=== PATIENT | male | born 1985 | race Caucasian/White ===

== ENCOUNTER 2024-05-23 09:55 | Inpatient (IN) ==
[2024-05-23 13:02] LABS: ABS Eosinophils 0.1 10^3/uL (0.0-0.5); ABS Lymphocytes 1.2 10^3/uL (1.0-4.8); ABS Monocytes 0.9 10^3/uL (0.0-1.1); ABS Neutrophils 10.3 10^3/uL (1.5-7.6); ABS Nucleated RBC 0.01 10^3/ul; Eosinophil % 0.8 %; Hemoglobin 13.6 g/dL (13.2-16.3); Lymphocyte % 9.4 %; Mean Corpuscular Hemoglobin 32.4 pg (27-33); Mean Corpuscular Hgb Conc 34.8 g/dL (31-36); Mean Corpuscular Volume 92.9 fL (80-97); Mean Platelet Volume 8.4 fL (7.5-11.2); Nucleated Red Blood Cells % 0.1 %/100WBC (0.0-0.8); Platelet Count 213 10^3/uL (150-450); Red Blood Count 4.19 10^6/uL (4.06-5.63); Red Cell Distribution Width 13.9 % (12-17); White Blood Count 12.6 10^3/uL (3.6-10.2)
[2024-05-23] MEDS: cefTRIAXone 1 gm/50 mL D5W 1 GM/50 ML BAG IV ONE ×2 (13:04→22:38)
[2024-05-23 13:15] LABS: Activated Partial Thrombo Time 32.1 seconds (26.0-38.0); INR 1.05 (0.83-1.13)
[2024-05-23 14:01] LABS: Albumin 4.9 g/dL (3.2-5.2); C Reactive Protein 61.42 mg/L (<8.01); Calcium 9.6 mg/dL (8.6-10.3); Creatinine, Serum 0.79 mg/dL (0.67-1.17); Globulin 2.4 g/dL (2-4); Potassium 4.2 mmol/L (3.5-5.0); Total Protein 7.3 g/dL (6.4-8.9); eGFR CKD-EPI 115.9 (>60)
[2024-05-23] MEDS: Aztreonam 2 GM in NS 0.9% 100 ml BAG 100 ML IVPB ONE (14:39)
[2024-05-23] MEDS: Lactated Ringers SEPSIS* BAG 2,540 ML IV ONE (14:49)
[2024-05-23 14:50] LABS: High Sensitivity Troponin 1 Hr 4 pg/mL (<20)
[2024-05-23] MEDS: Iohexol 300 (CONTRAST) 10 ML SDV IV ONE (15:03)
[2024-05-23] MEDS: Vancomycin 1,500 MG in NS 0.9% 250 ml 250 ML IVPB ONE (17:08)
[2024-05-23] MEDS ORDERED: Midazolam 2 mg/2 ml VIAL 1 mg/ml 2 ml VIAL (2 mg) ONE (17:57)
[2024-05-23] MEDS ORDERED: Propofol 10 MG/ML 20 ML BTL ONE ×2 (17:58→19:37)
[2024-05-23] MEDS ORDERED: fentaNYL 250 mcg/5 ml 50 MCG/ML 5 ml VIAL (250 MCG) ONE (17:58)
[2024-05-23] MEDS ORDERED: Lidocaine 2% PF 5 ML VIAL ONE (17:58)
[2024-05-23] MEDS ORDERED: Sevoflurane BOTTLE ONE (18:02)
[2024-05-23] MEDS ORDERED: Ondansetron 4 mg VIAL 2 MG/ML 2 ml VIAL IV PRN ×2 (18:15→20:44)
[2024-05-23] MEDS ORDERED: Naloxone 0.4 mg VIAL 0.4 mg/ml 1 ml VIAL IV PRN (18:15)
[2024-05-23] MEDS ORDERED: fentaNYL 100 mcg/2 ml 50 MCG/ML VIAL IV PRN (18:15)
[2024-05-23] MEDS ORDERED: NS 0.45% 1000 ml BAG 1,000 ML IV SCH (19:00)
[2024-05-23] MEDS ORDERED: Levalbuterol HFA INHALER MDI ONE (19:16)
[2024-05-23] MEDS ORDERED: Famotidine IV 10 MG/ML 2 ml VIAL (20 mg) ONE (19:17)
[2024-05-23] MEDS ORDERED: Dexmedetomidine 200 mcg/2 ml 2 ml VIAL (200 mcg) ONE (19:55)
[2024-05-23] MEDS ORDERED: ceFAZolin VIAL VIAL ONE (20:01)
[2024-05-23] MEDS ORDERED: Acetaminophen IV 1 GM/100ML 1,000 MG/100 ML BAG IV ONE (20:12)
[2024-05-23] MEDS ORDERED: Dexamethasone IV 4 MG/ML VIAL 1 ml VIAL ONE (20:14)
[2024-05-23] MEDS ORDERED: ceFAZolin 1 GM in Dextrose 0 GM/0 ML BAG ONE (20:24)
[2024-05-23] MEDS ORDERED: Magnesium Hydroxide LIQ 30 ML UDC PO PRN (20:44)
[2024-05-23] MEDS ORDERED: Lactulose 30 ml UDC PO PRN (20:44)
[2024-05-23] MEDS ORDERED: Ondansetron ODT 4 mg TAB 4 MG TAB PO PRN (20:44)
[2024-05-23] MEDS: Acetaminophen IV 1 GM/100ML 1,000 MG/100 ML BAG IV ONE (22:37)
[2024-05-23] MEDS: Lactated Ringers 1000 ml BAG 1,000 ML IV SCH ×2 (22:38→23:06)
[2024-05-23] MEDS: Buffered Lidocaine 1% SYRIN 1 ml INTRADERM ONE (22:38)
[2024-05-23] MEDS: Morphine 2 MG/ML SYRINGE IV PRN (22:54)
[2024-05-23] MEDS: Magnesium Hydroxide LIQ 30 ML UDC PO SCH (22:58)
[2024-05-23] MEDS ORDERED: Zosyn per Pharmacy NOTE FOLLOW UP SCH (23:45)
[2024-05-24] MEDS: Piperacillin/Tazobac 3.375 BAG 3.375 GM/100 ML BAG IV ONE (05:40)
[2024-05-24] MEDS: NS 0.9% 1000 ml BAG 1,000 ML IV ONE ×2 (05:58→12:15)
[2024-05-24] MEDS: Nicotine GUM 4MG FRUIT FLAVOR PO PRN (06:05)
[2024-05-24] MEDS: Vitamin THERAPEUTIC TAB PO SCH (08:59)
[2024-05-24] MEDS: ZOSYN 3.375 GM Q8H per EXTENDED INFUSION IV SCH (09:58)
[2024-05-24 11:25] LABS: Hematocrit 34.3 % (38-53); Hemoglobin 11.8 g/dL (13.2-16.3)
[2024-05-24] MEDS: Lactated Ringers 1000 ml BAG 1,000 ML IV ONE (11:37)
[2024-05-24 11:51] LABS: ABS Basophils 0.1 10^3/uL (0.0-0.1); ABS Lymphocytes 0.6 10^3/uL (1.0-4.8); ABS Monocytes 0.9 10^3/uL (0.0-1.1); ABS Neutrophils 11.7 10^3/uL (1.5-7.6); ABS Nucleated RBC 0.01 10^3/ul; Lymphocyte % 4.3 %; Mean Corpuscular Hemoglobin 31.5 pg (27-33); Mean Corpuscular Hgb Conc 33.4 g/dL (31-36); Mean Corpuscular Volume 94.4 fL (80-97); Mean Platelet Volume 8.8 fL (7.5-11.2); Nucleated Red Blood Cells % 0.1 %/100WBC (0.0-0.8); Platelet Count 210 10^3/uL (150-450); Red Blood Count 3.72 10^6/uL (4.06-5.63); Red Cell Distribution Width 14.1 % (12-17); White Blood Count 13.3 10^3/uL (3.6-10.2)
[2024-05-24 12:53] LABS: C Reactive Protein 174.16 mg/L (<8.01); Calcium 9.3 mg/dL (8.6-10.3); Creatinine, Serum 0.76 mg/dL (0.67-1.17); eGFR CKD-EPI 117.3 (>60)
[2024-05-24] MEDS ORDERED: Polyethyl Glycol/Propylene Gly OPHTH.SOLN BOTH EYES PRN (14:13)
[2024-05-24 14:48] LABS: Hepatitis C Antibody Negative (Negative)
[2024-05-24] MEDS: NS 0.9% 1000 ml BAG 1,000 ML IV SCH (18:29)
[2024-05-25 09:51] LABS: Hematocrit 31.2 % (38-53); Hemoglobin 10.8 g/dL (13.2-16.3); Mean Corpuscular Hemoglobin 33.1 pg (27-33); Mean Corpuscular Hgb Conc 34.7 g/dL (31-36); Mean Corpuscular Volume 95.6 fL (80-97); Mean Platelet Volume 9.1 fL (7.5-11.2); Platelet Count 210 10^3/uL (150-450); Red Blood Count 3.27 10^6/uL (4.06-5.63); Red Cell Distribution Width 13.9 % (12-17); White Blood Count 10.4 10^3/uL (3.6-10.2)
[2024-05-25 10:01] LABS: C Reactive Protein 92.97 mg/L (<8.01); Calcium 8.4 mg/dL (8.6-10.3); Creatinine, Serum 0.72 mg/dL (0.67-1.17); eGFR CKD-EPI 119.2 (>60)
[2024-05-25] MEDS ORDERED: Albuterol HFA INHALER 8 gm MDI INH PRN (10:06)
[2024-05-25] MEDS: ceFAZolin 2 GM in NS PREMIX 2 GM/100 ML BAG IVPB SCH (10:25)
[2024-05-25 10:34] LABS: ABS Basophils 0.1 10^3/uL (0.0-0.1); ABS Eosinophils 0.1 10^3/uL (0.0-0.5); ABS Lymphocytes 1.4 10^3/uL (1.0-4.8); ABS Monocytes 0.7 10^3/uL (0.0-1.1); ABS Neutrophils 8.2 10^3/uL (1.5-7.6); ABS Nucleated RBC 0.01 10^3/ul; Eosinophil % 0.8 %; Lymphocyte % 13.5 %; Nucleated Red Blood Cells % 0.1 %/100WBC (0.0-0.8)
[2024-05-26 09:50] VITALS: BP 141/101
[2024-05-26 23:17] LABS: Anaplasma phagocytophilum Negative (Negative); B. miyamotoi PCR, B Negative (Negative); Babesia divergens/MO-1 Negative (Negative); Babesia ducani Negative (Negative); Ehrlichia chaffeensis Negative (Negative); Ehrlichia ewingii/canis Negative (Negative); Ehrlichia muris eauclairensis Negative (Negative)
== END 2024-05-26 13:15 | disposition home or self-care (01) | DRG 383 ==
LOC: ED 09:55 → OR 18:29 → SSU 18:29 → OBSVTOIN 19:51
PROVIDERS: ADMIT Orthopaedic Surgery; ATTEND Orthopaedic Surgery